=== PATIENT | female | born 1935 | race African-American/Black ===

== ENCOUNTER 2017-02-02 16:24 | Emergency (ER) | payer MEDICARE, OTHER ==
[2017-02-02 17:08] LABS: Bilirubin Negative (Negative); Blood, Urine Negative (Negative); Glucose, Urine (Dipstick) Negative (Negative); Ketone, Urine Negative (Negative); Nitrite Negative (Negative); Protein, Urine (Dipstick) Negative (Neg-Trace); Urobilinogen 0.2 mg/dL (0.2-1.0)
[2017-02-02] MEDS ORDERED: Cyclobenzaprine 10 MG TAB ONE (17:59)
== END 2017-02-02 18:48 | disposition home or self-care (01) ==
LOC: ERS 16:24
DX: M62.830 Muscle spasm of back (principal); E03.9 Hypothyroidism, unspecified; I10 Essential (primary) hypertension; M19.90 Unspecified osteoarthritis, unspecified site; Z86.73 Personal history of transient ischemic attack (TIA), and cerebral infarction without residual deficits; X50.0XXA Overexertion from strenuous movement or load, initial encounter
CPT/HCPCS: 81003; 87086; 99283

== ENCOUNTER 2017-05-24 17:08 | Emergency (ER) | payer MEDICARE, MEDICAID ==
[2017-05-24 18:01] LABS: #Lymphocytes 0.8 thou/uL (1.20-3.40); #Monocytes 0.4 thou/uL (0.11-0.59); #Neutrophils 3.7 thou/uL (1.40-6.50); %Eosinophils 0.3 % (0.0-10.0); %Lymphocytes 15.7 % (21.0-51.0); %Monocytes 8.4 % (0.0-10.0); %Neutrophils 75.7 % (42.0-75.0); Hemoglobin 13.6 g/dL (12.0-16.0); Mean Corpuscular HGB CONC 33.1 g/dL (32.0-36.0); Mean Corpuscular Hemoglobin 29.5 pg (27.0-31.0); Mean Corpuscular Volume 88.9 fl (81.0-99.0); Mean Platelet Volume 8.3 fL (7.4-10.4); Platelet Count 230 thou/uL (130-400); RBC Distribution Width 12.5 % (11.5-14.5); Red Blood Cell (RBC) Count 4.63 mill/uL (4.20-5.40); White Blood Cell (WBC) Count 4.8 thou/uL (4.8-10.8)
--- NOTE | 2017-05-24 18:18 | RAD ---
ONE VIEW AP CHEST: 05/24/17 HISTORY: Dyspnea. COMPARISON: 12/06/14. Mild elevated left hemidiaphragm is stable. The lungs appear well aerated and clear. No infiltrate or vascular congestion seen. Heart size is normal. IMPRESSION: No acute finding. POS: [facility]
[2017-05-24 18:31] LABS: ALT (SGPT) 15 U/L (8-55); AST (SGOT) 21 U/L (5-34); Albumin 4.3 g/dL (3.4-4.8); Alkaline Phosphatase 82 U/L (40-150); Anion Gap 12 mmol/L (10-20); BUN (Urea Nitrogen) 9 mg/dL (9.8-20.1); Bilirubin, Total 0.5 mg/dL (0.2-1.2); CK (CPK) 128 U/L (29-168); Calc. Creatinine Clearance 0 mL/min (70-130); Calcium 9.9 mg/dL (7.8-10.44); Carbon Dioxide 22 mmol/L (23-31); Chloride 109 mmol/L (98-107); Estimated GFR-MDRD 66; Globulin 3.4 g/dL (2.4-3.5); Glucose 100 mg/dL (83-110); Lipase 20 U/L (8-78); Potassium 4.5 mmol/L (3.5-5.1); Protein, Total 7.7 g/dL (6.0-8.3); Sodium 138 mmol/L (136-145)
[2017-05-24 18:34] LABS: CKMB 1.1 ng/mL (0-6.6); Troponin I Less than 0.010 ng/mL (< 0.028)
--- NOTE | 2017-05-24 20:54 | CT ---
CT HEAD WITHOUT CONTRAST: 05/24/17 Multiple axial tomograms obtained through the head without IV enhancement. HISTORY: Syncope. COMPARISON: 07/29/16. 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 This is stable from the prior exam. There is also m ild associated ex vacuo dilatation of the anterior horn on the left which is a stable finding. There are mild chronic ischemic white matter change which appears stable. No evidence of acute infarct or h emorrhage. IMPRESSION: No acute finding. Stable chronic changes as described above. POS: [facility]
== END 2017-05-24 21:53 | disposition home or self-care (01) ==
LOC: ERS 17:08
DX: R55 Syncope and collapse (principal); E03.9 Hypothyroidism, unspecified; I10 Essential (primary) hypertension; M19.90 Unspecified osteoarthritis, unspecified site; Z79.01 Long term (current) use of anticoagulants; Z86.718 Personal history of other venous thrombosis and embolism; Z86.73 Personal history of transient ischemic attack (TIA), and cerebral infarction without residual deficits; Z79.899 Other long term (current) drug therapy
CPT/HCPCS: 36415; 70450; 71045; 80053; 82550; 82553; 83690; 84484; 85025; 93005

== ENCOUNTER 2017-08-05 12:31 | Emergency (ER) | payer MEDICARE, OTHER ==
[2017-08-05 13:54] LABS: #Basophils 0.1 thou/uL (0.0-0.2); #Lymphocytes 1.4 thou/uL (1.20-3.40); #Monocytes 0.4 thou/uL (0.11-0.59); #Neutrophils 3.4 thou/uL (1.40-6.50); %Basophils 1.1 % (0.0-1.0); %Eosinophils 0.8 % (0.0-10.0); %Lymphocytes 26.7 % (21.0-51.0); %Monocytes 8.3 % (0.0-10.0); %Neutrophils 63.2 % (42.0-75.0); Hemoglobin 13.2 g/dL (12.0-16.0); Mean Corpuscular HGB CONC 33.2 g/dL (32.0-36.0); Mean Corpuscular Hemoglobin 28.6 pg (27.0-31.0); Mean Corpuscular Volume 86.2 fl (81.0-99.0); Mean Platelet Volume 8.3 fL (7.4-10.4); Platelet Count 274 thou/uL (130-400); RBC Distribution Width 12.7 % (11.5-14.5); Red Blood Cell (RBC) Count 4.62 mill/uL (4.20-5.40); White Blood Cell (WBC) Count 5.4 thou/uL (4.8-10.8)
[2017-08-05 13:57] LABS: INR-International Normal Ratio 1.4; PTT 30.9 SEC (22.9-36.1); Prothrombin Time 17.5 SEC (12.0-14.7)
[2017-08-05 14:13] LABS: ALT (SGPT) 14 U/L (8-55); AST (SGOT) 19 U/L (5-34); Albumin 4.3 g/dL (3.4-4.8); Alkaline Phosphatase 92 U/L (40-150); Anion Gap 11 mmol/L (10-20); BUN (Urea Nitrogen) 12 mg/dL (9.8-20.1); Bilirubin, Total 0.5 mg/dL (0.2-1.2); Calc. Creatinine Clearance 0 mL/min (70-130); Calcium 10.6 mg/dL (7.8-10.44); Carbon Dioxide 25 mmol/L (23-31); Chloride 110 mmol/L (98-107); Estimated GFR-MDRD 69; Globulin 3.2 g/dL (2.4-3.5); Glucose 97 mg/dL (83-110); Potassium 3.7 mmol/L (3.5-5.1); Protein, Total 7.5 g/dL (6.0-8.3); Sodium 142 mmol/L (136-145)
--- NOTE | 2017-08-05 14:28 | ULT ---
ULTRASOUND RIGHT LOWER EXTREMITY VENOUS DOPPLER: Date: 08/05/17 HISTORY: Pain and edema. COMPARISON: None. Most recent prior examination is from 2014. FINDINGS: Real-time Sandoval scale and color Doppler with spectral analysis of the right lower extremity venous sy stem was performed with the linear transducer. The common femoral, femoral, proximal portions of grea ter saphenous and deep femoral veins, as well as the popliteal and posterior tibial veins were interr ogated. There is partial thrombus within the right femoral vein and posterior tibial vein. 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 Nurse notified of findings by the technologist at 1330 hours. CODE CR. POS: [facility]
== END 2017-08-05 14:59 | disposition home or self-care (01) ==
LOC: ERS 12:31
DX: I82.511 Chronic embolism and thrombosis of right femoral vein (principal); E03.9 Hypothyroidism, unspecified; I10 Essential (primary) hypertension; Z86.73 Personal history of transient ischemic attack (TIA), and cerebral infarction without residual deficits; Z79.01 Long term (current) use of anticoagulants; Z79.899 Other long term (current) drug therapy
CPT/HCPCS: 36415; 80053; 85025; 85610; 85730

== ENCOUNTER 2021-03-17 14:09 | Outpatient (CLI) | payer MEDICARE, MEDICAID | END 2021-03-17 14:10 | disposition home or self-care (01) | LOC: ULT 14:09 | PROVIDERS: ATTEND Family Medicine | DX: R42 Dizziness and giddiness (principal) | CPT/HCPCS: 93880 ==

== ENCOUNTER 2022-05-12 12:28 | Outpatient (CLI) | payer OTHER | END 2022-05-12 12:29 | disposition home or self-care (01) | LOC: ULT 12:28 | PROVIDERS: ATTEND Family Medicine | DX: M79.602 Pain in left arm (principal) ==

== ENCOUNTER 2022-08-15 08:00 | Outpatient (CLI) | payer OTHER | END 2022-08-15 08:01 | disposition home or self-care (01) | LOC: CT 08:00 | PROVIDERS: ATTEND Family Medicine | DX: M47.22 Other spondylosis with radiculopathy, cervical region (principal); M47.813 Spondylosis without myelopathy or radiculopathy, cervicothoracic region; M48.02 Spinal stenosis, cervical region; M48.03 Spinal stenosis, cervicothoracic region | CPT/HCPCS: 72125 ==

== ENCOUNTER 2023-03-02 16:26 | Emergency (ER) | payer OTHER | END 2023-03-02 19:47 | disposition home or self-care (01) | LOC: ERS 16:26 | DX: M46.92 Unspecified inflammatory spondylopathy, cervical region (principal); I10 Essential (primary) hypertension; Z86.73 Personal history of transient ischemic attack (TIA), and cerebral infarction without residual deficits | CPT/HCPCS: 72125 ==

== ENCOUNTER 2023-03-14 14:45 | Emergency (ER) | payer OTHER ==
[2023-03-14] MEDS ORDERED: HYDROcodone/Acetaminophen 5/325 mg Tablet ONE (16:04)
== END 2023-03-14 16:06 | disposition home or self-care (01) ==
LOC: ERS 14:45
DX: M54.2 Cervicalgia (principal); R06.02 Shortness of breath; R50.9 Fever, unspecified; R42 Dizziness and giddiness; I10 Essential (primary) hypertension; Z86.73 Personal history of transient ischemic attack (TIA), and cerebral infarction without residual deficits; Z79.899 Other long term (current) drug therapy; Z79.01 Long term (current) use of anticoagulants

== ENCOUNTER 2023-03-21 08:11 | Outpatient (CLI) | payer OTHER, MEDICAID | END 2023-03-21 08:12 | disposition home or self-care (01) | LOC: BICULT 08:11 | PROVIDERS: ATTEND Family Medicine | DX: E04.2 Nontoxic multinodular goiter (principal) | CPT/HCPCS: 76536 ==

== ENCOUNTER 2023-04-12 07:46 | Emergency (ER) | payer OTHER ==
[2023-04-12 08:45] LABS: #Monocytes 0.4 thou/uL (0.11-0.59); %Basophils 0.7 % (0.0-1.0); %Lymphocytes 39.1 % (21.0-51.0); %Monocytes 10.5 % (0.0-10.0); %Neutrophils 48.5 % (42.0-75.0); Hematocrit 37.9 % (36.0-47.0); Hemoglobin 12.6 g/dL (12.0-16.0); Mean Corpuscular HGB CONC 33.2 g/dL (32.0-36.0); Mean Corpuscular Hemoglobin 28.3 pg (27.0-31.0); Mean Corpuscular Volume 85.2 fl (78.0-98.0); Mean Platelet Volume 12.2 fL (7.4-10.4); Platelet Count 146 10x3/uL (130-400); RBC Distribution Width 14.3 % (11.5-14.5); Red Blood Cell (RBC) Count 4.45 mill/uL (4.20-5.40); White Blood Cell (WBC) Count 4.2 10x3/uL (4.8-10.8)
[2023-04-12 09:05] LABS: INR-International Normal Ratio 1.3; Prothrombin Time 16.8 sec (12.0-14.7)
[2023-04-12 09:06] LABS: PTT 27.4 sec (22.9-36.1)
[2023-04-12 09:12] LABS: ALT (SGPT) 12 U/L (8-55); AST (SGOT) 15 U/L (5-34); Albumin 4.2 g/dL (3.4-4.8); Alkaline Phosphatase 81 U/L (40-110); Anion Gap 11 mmol/L (10-20); BUN (Urea Nitrogen) 11 mg/dL (9.8-20.1); Bilirubin, Total 0.7 mg/dL (0.2-1.2); Calc. Creatinine Clearance 0 mL/min (70-130); Calcium 10.2 mg/dL (7.8-10.44); Carbon Dioxide 25 mmol/L (23-31); Chloride 110 mmol/L (98-107); Estimated GFR 53; Globulin 2.9 g/dL (2.4-3.5); Glucose 100 mg/dL (83-110); Potassium 3.2 mmol/L (3.5-5.1); Protein, Total 7.1 g/dL (5.8-8.1); Sodium 143 mmol/L (136-145)
[2023-04-12 09:32] LABS: SARS-CoV-2 NAA Rapid Test Not Detected (NotDetected)
== END 2023-04-12 11:28 | disposition home or self-care (01) ==
LOC: ERS 07:46
DX: S09.90XA Unspecified injury of head, initial encounter (principal); I10 Essential (primary) hypertension; Z79.899 Other long term (current) drug therapy; Z79.01 Long term (current) use of anticoagulants; Z86.73 Personal history of transient ischemic attack (TIA), and cerebral infarction without residual deficits; W22.8XXA Striking against or struck by other objects, initial encounter
CPT/HCPCS: 0240U; 70450; 72125; 80053; 85025; 85610; 85730; 36415

== ENCOUNTER 2023-05-20 18:39 | Emergency (ER) | payer OTHER ==
[2023-05-20] MEDS ORDERED: Orphenadrine Citrate 60 MG/2 ML VIAL ONE (20:16)
[2023-05-20] MEDS ORDERED: Diazepam 5 MG TAB ONE (20:45)
== END 2023-05-20 21:57 | disposition home or self-care (01) ==
LOC: ERS 18:39
DX: M54.50 Low back pain, unspecified (principal); G89.29 Other chronic pain; I10 Essential (primary) hypertension; Z86.73 Personal history of transient ischemic attack (TIA), and cerebral infarction without residual deficits; Z79.01 Long term (current) use of anticoagulants; Z79.899 Other long term (current) drug therapy
CPT/HCPCS: 96372; J2360

== ENCOUNTER 2024-02-11 15:58 | Emergency (ER) | payer MEDICARE, OTHER ==
[2024-02-11] MEDS ORDERED: Ketorolac Tromethamine 30 MG (1 mL) VIAL ONE (17:09)
== END 2024-02-11 17:37 | disposition home or self-care (01) ==
LOC: ERS 15:58
DX: M16.11 Unilateral primary osteoarthritis, right hip (principal); I10 Essential (primary) hypertension; Z86.73 Personal history of transient ischemic attack (TIA), and cerebral infarction without residual deficits
CPT/HCPCS: 72170; 73502; J1885; 96374

== ENCOUNTER 2024-05-01 08:31 | Outpatient (CLI) | payer MEDICARE, MEDICAID | END 2024-05-01 08:32 | disposition home or self-care (01) | LOC: BICMRI 08:31 | PROVIDERS: ATTEND Psychiatry & Neurology Neurology | DX: R93.89 Abnormal findings on diagnostic imaging of other specified body structures (principal); M50.31 Other cervical disc degeneration, high cervical region; M50.321 Other cervical disc degeneration at C4-C5 level; M50.322 Other cervical disc degeneration at C5-C6 level; M50.323 Other cervical disc degeneration at C6-C7 level; M50.33 Other cervical disc degeneration, cervicothoracic region; M47.813 Spondylosis without myelopathy or radiculopathy, cervicothoracic region; M47.812 Spondylosis without myelopathy or radiculopathy, cervical region; M48.02 Spinal stenosis, cervical region; M48.03 Spinal stenosis, cervicothoracic region; M25.78 Osteophyte, vertebrae | CPT/HCPCS: 72141 ==